=== PATIENT | female | born 1955 | race Native Hawaiian/Other Pacific Islander ===

== ENCOUNTER 2020-06-28 15:44 | Outpatient (CLI) | payer OTHER ==
[2020-06-28 17:26] LABS: PLATELET COUNT 218 K/uL (152-353)
[2020-06-28 17:48] LABS: POTASSIUM 4.3 mmol/L (3.6-5.2)
== END 2020-06-28 21:36 | disposition home or self-care (01) ==
LOC: LAB 15:44
PROVIDERS: ATTEND Nurse Practitioner Family
DX: Z00.00 Encounter for general adult medical examination without abnormal findings (principal); I10 Essential (primary) hypertension; F41.8 Other specified anxiety disorders; F32.9 Major depressive disorder, single episode, unspecified; K21.9 Gastro-esophageal reflux disease without esophagitis; Z79.899 Other long term (current) drug therapy; R53.83 Other fatigue; R53.81 Other malaise
CPT/HCPCS: 80053; 80061; 82306; 82607; 83036; 84443; 85027